=== PATIENT | female | born 1960 | race Caucasian/White ===

== ENCOUNTER 2019-02-20 01:38 | Emergency (ER) | payer MEDICAID ==
[~2019-02-20] VITALS: Ht 167.6 cm; Wt 68.0 kg
[2019-02-20 01:52] VITALS: BP 143/89
== END 2019-02-20 06:08 | disposition left against medical advice (07) ==
LOC: ER 01:42
DX: M25.562 Pain in left knee (principal); M25.561 Pain in right knee; Z53.21 Procedure and treatment not carried out due to patient leaving prior to being seen by health care provider

== ENCOUNTER 2019-02-20 19:59 | Emergency (ER) | payer MEDICAID ==
[~2019-02-20] VITALS: Ht 170.2 cm; Wt 68.0 kg
[2019-02-20 20:14] VITALS: BP 119/84
[2019-02-20] MEDS ORDERED: TRIAMCINOLONE 40MG/ML 1ML VIAL IM ONE (23:15)
[2019-02-20] MEDS ORDERED: BACLOFEN 10 MG TAB PO ONE (23:15)
== END 2019-02-20 23:55 | disposition home or self-care (01) ==
LOC: ER 20:07
DX: M17.0 Bilateral primary osteoarthritis of knee (principal); F17.200 Nicotine dependence, unspecified, uncomplicated; F12.10 Cannabis abuse, uncomplicated
CPT/HCPCS: 73562; 96372; 99283; J3301

== ENCOUNTER 2019-06-12 01:21 | Emergency (ER) | payer MEDICAID ==
[~2019-06-12] VITALS: Ht 172.7 cm; Wt 68.0 kg
[2019-06-12 04:30] VITALS: BP 110/88
[2019-06-12] MEDS ORDERED: TRIAMCINOLONE 40MG/ML 1ML VIAL IM ONE (04:30)
[2019-06-12] MEDS ORDERED: MEPERIDINE HCL (50 MG/ML) 1 ML VIAL IM ONE (04:45)
[2019-06-12] MEDS ORDERED: ONDANSETRON ODT 4 MG TAB PO ONE (04:45)
[2019-06-12] MEDS ORDERED: BACLOFEN 10 MG TAB PO ONE (04:45)
== END 2019-06-12 05:00 | disposition home or self-care (01) ==
LOC: ER 01:24
DX: M06.9 Rheumatoid arthritis, unspecified (principal); M25.569 Pain in unspecified knee; M25.512 Pain in left shoulder; M25.511 Pain in right shoulder; F17.200 Nicotine dependence, unspecified, uncomplicated
CPT/HCPCS: 20552; 96372; 99284; J2175; J3301; Q0162

== ENCOUNTER 2021-01-06 22:13 | Emergency (ER) | payer MEDICAID ==
[~2021-01-06] VITALS: Ht 172.7 cm; Wt 77.1 kg
[2021-01-06 22:15] VITALS: BP 140/84
[2021-01-07] MEDS ORDERED: IBUPROFEN 800 MG TAB PO ONE (02:45)
== END 2021-01-07 03:48 | disposition home or self-care (01) ==
LOC: ER 22:13
DX: S73.102A Unspecified sprain of left hip, initial encounter (principal); S93.402A Sprain of unspecified ligament of left ankle, initial encounter; F17.210 Nicotine dependence, cigarettes, uncomplicated; F12.10 Cannabis abuse, uncomplicated; W01.0XXA Fall on same level from slipping, tripping and stumbling without subsequent striking against object, initial encounter; Y93.89 Activity, other specified; Y92.89 Other specified places as the place of occurrence of the external cause; Y99.8 Other external cause status
CPT/HCPCS: 72170; 73610; 73630

== ENCOUNTER 2021-12-02 02:09 | Emergency (ER) | payer MEDICAID ==
[~2021-12-02] VITALS: Ht 172.7 cm; Wt 72.6 kg
[2021-12-02] MEDS ORDERED: IBU600T PO (03:34)
[2021-12-02 03:45] VITALS: BP 156/92
== END 2021-12-02 04:23 | disposition home or self-care (01) ==
LOC: ER 02:09
DX: S09.90XA Unspecified injury of head, initial encounter (principal); M79.10 Myalgia, unspecified site; F17.210 Nicotine dependence, cigarettes, uncomplicated; Y04.8XXA Assault by other bodily force, initial encounter; Y93.89 Activity, other specified; Y92.89 Other specified places as the place of occurrence of the external cause; Y99.8 Other external cause status
CPT/HCPCS: 70450; 70486; 71250; 72125